=== PATIENT | male | born 1990 | race Caucasian/White ===

== ENCOUNTER 2021-07-25 15:06 | Emergency (ER) | payer OTHER ==
[2021-07-25] MEDS ORDERED: ONDANSETRON 4 MG/2 ML VIAL ONE (16:01)
[2021-07-25] MEDS ORDERED: KETAMINE HCL 500 MG/5 ML VIAL ONE (16:01)
--- NOTE | 2021-07-25 16:14 | RAD REPORT ---
EXAM DESCRIPTION: RAD - Knee Left 2 View - 07/25/2021 3:52 pm CLINICAL HISTORY: r/o fracture, knee pain COMPARISON: No comparisons FINDINGS: No fracture of the femur, tibia or fibula seen. Fracture of the patella is not identifiabl e. On this AP and cross-table lateral exam the patella appears to have been laterally dislocated. Cor relation is needed with exam findings. No joint effusion seen. No joint space narrowing. No air or foreign body in the soft tissues. IMPRESSION: Patella appears to be laterally dislocated but no fracture is identifiable.
--- NOTE | 2021-07-25 16:20 | ER ---
Nurse's Notes [facility] Name: Marion Mcguire Age: 31 yrs Sex: Male : 1990 Arrival Date: 07/25/2021 Time: 15:27 Bed 14 Private MD: Diagnosis: Lateral dislocation of left patella Presentation: 07/25 15:27 Chief complaint: Patient states: patient fell while climbing over a fence, injured left cb5 knee. Coronavirus screen: Client denies travel out of the [place] in the last 14 days. At this time, the client does not indicate any symptoms associated with coronavirus-19. Ebola Screen: Patient negative for fever greater than or equal to 101.5 degrees Fahrenheit, and additional compatible Ebola Virus Disease symptoms Patient denies exposure to infectious person. Patient denies travel to an Ebola-affected area in the 21 days before illness onset. Initial Sepsis Screen: Does the patient meet any 2 criteria? No. Patient's initial sepsis screen is negative. Does the patient have a suspected source of infection? No. Patient's initial sepsis screen is negative. Risk Assessment: Do you want to hurt yourself or someone else? Patient reports no desire to harm self or others. 15:27 Method Of Arrival: EMS: [facility] cb5 15:27 Acuity: LEXII 2 cb5 16:49 Onset of symptoms was July 25, 2021. ss Triage Assessment: 15:29 General: Appears uncomfortable, Behavior is calm, cooperative, appropriate for age, in cb5 police custody with metal restraints. Pain: Complains of pain in left leg, left knee. Historical: - Allergies: 16:49 PENICILLINS; ss - PMHx: 16:49 None; ss - PSHx: 16:49 Unable to Obtain; ss - Immunization history:: Adult Immunizations. - Social history:: Smoking status: unknown. Screenin:33 Abuse screen: Denies threats or abuse. Denies injuries from another. Nutritional cb5 screening: No deficits noted. Tuberculosis screening: No symptoms or risk factors identified. 15:34 Fall Risk cb5 Assessment: 15:30 General: Appears uncomfortable, Behavior is calm, cooperative, appropriate for age. cb5 Pain: Complains of pain in left knee, and leg Pain currently is 9 out of 10 on a pain scale. Neuro: No deficits noted. Level of Consciousness is awake, alert, obeys commands, Oriented to person, place, time, situation, Appropriate for age. Cardiovascular: No deficits noted. Respiratory: No deficits noted. GI: No deficits noted. : No deficits noted. EENT: No deficits noted. Derm:. Musculoskeletal: Capillary refill < 3 seconds, left patella. Injury Description: Deformity sustained to left patella. 16:30 Reassessment: No changes from previously documented assessment. Patient and/or family ss updated on plan of care and expected duration. Pain level reassessed. Patient is alert, oriented x 3, equal unlabored respirations, skin warm/dry/pink. Musculoskeletal: Circulation, motion, and sensation intact. Capillary refill < 3 seconds, Range of motion: intact in all extremities, Tenderness present in left knee. 17:13 Reassessment: No changes from previously documented assessment. Patient and/or family ll1 updated on plan of care and expected duration. Pain level reassessed. Patient is alert, oriented x 3, equal unlabored respirations, skin warm/dry/pink. Vital Signs: 15:27 BP 119 / 64; Pulse 63; Resp 16; Temp 98.6; Pulse Ox 99% ; Weight 83.91 kg; Height 5 ft. cb5 (152.40 cm); Pain 7/10; 16:48 BP 152 / 84; Pulse 74; Resp 12; Temp 98.6; Pulse Ox 100% on 3 lpm NC; Pain 4/10; ss 17:15 BP 141 / 81; Pulse 71; Resp 14; Pulse Ox 100% on R/A; Pain 3/10; ll1 15:27 Body Mass Index 36.13 (83.91 kg, 152.40 cm) cb5 ED Course: 15:27 Patient arrived in ED. cb5 15:27 Aniya Figueroa, RN is Primary Nurse. cb5 15:29 Triage completed. cb5 15:30 Nelson Pardo PA is PHCP. jr8 15:30 Arm band placed on. cb5 15:31 Hiram Grimes MD is Attending Physician. jr8 15:34 Bed in low position. Call light in reach. Side rails up X2. cb5 15:54 Knee Left 2 View In Process Unspecified. EDMS 16:00 Maintain EMS IV. Dressing intact. Good blood return noted. Site clean \T\ dry. Gauge \T\ ll 1 site: 20 G L AC. 16:49 No provider procedures requiring assistance completed. ss 17:09 Knee Left 2 View XRAY In Process Unspecified. EDMS 17:14 IV discontinued, intact, bleeding controlled, No redness/swelling at site. Pressure ll1 dressing applied. Administered Medications: 16:00 Drug: Zofran (Ondansetron) 4 mg Route: IVP; Site: right antecubital; ll1 16:50 Follow up: Response: No adverse reaction ss 16:10 Drug: Ketamine 80 mg Route: IVP; Site: right antecubital; ll1 16:50 Follow up: Response: No adverse reaction ss Outcome: 16:19 Discharge ordered by . barbra 17:14 Discharged to Law Enforcement ll1 17:14 Condition: stable 17:14 Discharge instructions given to patient, [employer] officer Instructed on discharge instructions, follow up and referral plans. medication usage, Demonstrated understanding of instructions, follow-up care, medications, crutch walking, Prescriptions given X 1. 17:15 Patient left the ED. ll1 Signatures: Dispatcher [employer] EDMS Charlotte Stock RN RN Nelson Pardo PA PA jr8 Cata Ca RN RN ll1 Aniya Figueroa, RN RN cb5
--- NOTE | 2021-07-25 16:20 | EDPHYS ---
Physician Documentation [facility] Name: Marion Mcguire Age: 31 yrs Sex: Male : 1990 Arrival Date: 07/25/2021 Time: 15:27 Bed 14 Private MD: ED Physician Hiram Grimes HPI: 07/25 16:06 This 31 yrs old Male presents to ER via EMS with complaints of Deformity knee. jr8 16:06 Onset: The symptoms/episode began/occurred acutely, today. Modifying factors: The jr8 symptoms are alleviated by remaining still, the symptoms are aggravated by movement. Associated signs and symptoms: The patient has no apparent associated signs or symptoms. Severity of symptoms: At their worst the symptoms were moderate, in the emergency department the symptoms are unchanged. The patient has not experienced similar symptoms in the past. The patient has not recently seen a physician. 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 Patient stated that he stepped into a hole causing a twisting motion onto his left knee. Golva a few pops and then noticed immediate deformity. Got to a safe area and then notified his officer on duty which called EMS. Denies any other injury at this time.. Historical: - Allergies: 16:49 PENICILLINS; ss - PMHx: 16:49 None; ss - PSHx: 16:49 Unable to Obtain; ss - Immunization history:: Adult Immunizations. - Social history:: Smoking status: unknown. ROS: 16:06 Eyes: Negative for injury, pain, redness, and discharge, ENT: Negative for injury, jr8 pain, and discharge, Neck: Negative for injury, pain, and swelling, Cardiovascular: Negative for chest pain, palpitations, and edema, Respiratory: Negative for shortness of breath, cough, wheezing, and pleuritic chest pain, Abdomen/GI: Negative for abdominal pain, nausea, vomiting, diarrhea, and constipation, Back: Negative for injury and pain, Skin: Negative for injury, rash, and discoloration, Neuro: Negative for headache, weakness, numbness, tingling, and seizure. 16:06 MS/extremity: Positive for injury or acute deformity, decreased range of motion, pain, swelling, tenderness, of the left leg. Exam: 16:06 Constitutional: This is a well developed, well nourished patient who is awake, alert, jr8 and in no acute distress. Cardiovascular: Regular rate and rhythm with a normal S1 and S2. No gallops, murmurs, or rubs. Normal PMI, no JVD. No pulse deficits. Respiratory: Lungs have equal breath sounds bilaterally, clear to auscultation and percussion. No rales, rhonchi or wheezes noted. No increased work of breathing, no retractions or nasal flaring. Skin: Warm, dry with normal turgor. Normal color with no rashes, no lesions, and no evidence of cellulitis. Neuro: Awake and alert, GCS 15, oriented to person, place, time, and situation. Cranial nerves II-XII grossly intact. Motor strength 5/5 in all extremities. Sensory grossly intact. 16:06 Head/Face: Normocephalic, atraumatic. Neck: Trachea midline, no thyromegaly or masses palpated, and no cervical lymphadenopathy. Supple, full range of motion without nuchal rigidity, or vertebral point tenderness. No Meningismus. Chest/axilla: Normal chest wall appearance and motion. Nontender with no deformity. No lesions are appreciated. Abdomen/GI: Soft, non-tender, with normal bowel sounds. No distension or tympany. No guarding or rebound. No evidence of tenderness throughout. Back: No spinal tenderness. No costovertebral tenderness. Full range of motion. 16:06 Musculoskeletal/extremity: Extremities: grossly normal except: noted in the left leg: Patient has deformity to the anterior left knee. It appears that patella is laterally displaced with moderate tenderness. No extensive amount of swelling or bruising noted. No other obvious deformity noted. Patient has normal sensation to the lower extremity distal to the injury site. Pulses 2+ dorsal pedal and posterior tibial to affected extremity. All other extremities unremarkable.. Vital Signs: 15:27 BP 119 / 64; Pulse 63; Resp 16; Temp 98.6; Pulse Ox 99% ; Weight 83.91 kg; Height 5 ft. cb5 (152.40 cm); Pain 7/10; 16:48 BP 152 / 84; Pulse 74; Resp 12; Temp 98.6; Pulse Ox 100% on 3 lpm NC; Pain 4/10; ss 17:15 BP 141 / 81; Pulse 71; Resp 14; Pulse Ox 100% on R/A; Pain 3/10; ll1 15:27 Body Mass Index 36.13 (83.91 kg, 152.40 cm) cb5 Procedures: 16:16 Reduction: of the left knee, using manipulation, Immobilized with knee immobilizer . jr8 Patient tolerated well. Post reduction film - reveals normal alignment. Moderate sedation: Pre-procedure assessment: the patient has been NPO 4 hour(s) prior to arrival, ASA physical classification: I - healthy, no underlying organic disease, Airway assessment: able to hyperextend neck, able to maintain airway, can open mouth without difficulty, Mallampati classification of tongue size: II - faucial pillars and soft palate can be visualized, but uvula is masked by the base of the tongue, Monitoring during procedure: hand tapper, continuous pulse oximetry, nurse at bedside at all times, Medications employed: Ketamine, 80 mg(s), Post-procedure assessment: the patient is deeply sedated, Blake sedation score: 6 - no response, Respiratory status: requires supplemental oxygen to maintain acceptable oxygen saturation, a reversal agent was not used. MDM: 15:31 Patient medically screened. jr8 16:16 Data reviewed: vital signs, nurses notes, radiologic studies, plain films. Data jr8 interpreted: Pulse oximetry: on room air is 99 %. Interpretation: normal. Counseling: I had a detailed discussion with the patient and/or guardian regarding: the historical points, exam findings, and any diagnostic results supporting the discharge/admit diagnosis, radiology results, the need for outpatient follow up, a orthopedic surgeon, to return to the emergency department if symptoms worsen or persist or if there are any questions or concerns that arise at home. 07/25 15:53 Order name: Knee Left 2 View; Complete Time: 16:19 EDGA 07/25 15:43 Order name: Conscious Sedation; Complete Time: 16:26 jr 07/25 16:16 Order name: Knee Left 2 View XRAY bd Administered Medications: 16:00 Drug: Zofran (Ondansetron) 4 mg Route: IVP; Site: right antecubital; ll1 16:50 Follow up: Response: No adverse reaction ss 16:10 Drug: Ketamine 80 mg Route: IVP; Site: right antecubital; ll1 16:50 Follow up: Response: No adverse reaction ss Disposition: 18:46 Co-signature as Attending Physician, Hiram Grimes MD. rn Disposition Summary: 07/25/21 16:19 Discharge Ordered Location: Law Enforcement [facility] Problem: new jr8 Symptoms: are resolved jr8 Condition: Stable jr8 Diagnosis - Lateral dislocation of left patella jr8 Followup: jr8 - With: Private Physician - When: 2 - 3 days - Reason: Recheck today's complaints, Continuance of care, Re-evaluation by your physician Discharge Instructions: - Discharge Summary Sheet jr8 - Patellar Dislocation jr8 Forms: - Medication Reconciliation Form jr8 - Thank You Letter jr8 - Antibiotic Education jr8 - Prescription Opioid Use jr8 Prescriptions: - Ibuprofen 800 mg Oral Tablet - take 1 tablet by ORAL route every 12 hours As needed take with food; 20 tablet; jr8 Refills: 0, Product Selection Permitted Signatures: Dispatcher [employer] EDMS Hiram Grimes MD MD rn Smirch, Shelby, RN RN ss Nelson Pardo PA PA jr8 Cata Ca RN RN ll1 Aniya Figueroa RN RN cb5 Corrections: (The following items were deleted from the chart) 15:53 15:53 Knee Left 2 View+RAD.RAD.BRZ ordered. EDMS EDMS
--- NOTE | 2021-07-25 17:16 | RAD REPORT ---
EXAM DESCRIPTION: RAD - Knee Left 2 View - 07/25/2021 5:07 pm CLINICAL HISTORY: post reduction COMPARISON: Knee Left 2 View dated 07/25/2021 FINDINGS: AP and cross-table lateral views show successful reduction of the laterally dislocated pat janneth seen on the earlier examination. Patella is now in anatomic position. Small joint effusion is pr esent. No fracture or acute bone findings seen. IMPRESSION: Successful reduction of the lateral patella dislocation detailed earlier. Small joint effusion is seen with no fracture identified.
[2021-07-25 17:40] VITALS: TEMP 98.6
[2021-07-25 17:42] VITALS: O2SAT 100
[2021-07-25 17:43] VITALS: BP 141/81
== END 2021-07-25 17:15 ==
LOC: ER 15:06
PROC: 0QSFXZZ Reposition Left Patella, External Approach (ICD-10-PCS; principal; 2021-07-25)
DX: S83.015A Lateral dislocation of left patella, initial encounter (principal); X50.1XXA Overexertion from prolonged static or awkward postures, initial encounter; Y93.89 Activity, other specified; Y92.149 Unspecified place in prison as the place of occurrence of the external cause; Z88.0 Allergy status to penicillin
CPT/HCPCS: 73560 ×2; 96375; 96374; 99284; 27562; J2405

== ENCOUNTER 2021-09-06 11:34 | Emergency (ER) | payer OTHER ==
[2021-09-06] MEDS ORDERED: HYDROMORPHONE HCL 1 MG/ML INJ ONE ×2 (11:49→13:34)
[2021-09-06] MEDS ORDERED: ONDANSETRON 4 MG/2 ML VIAL ONE (11:50)
[2021-09-06] MEDS ORDERED: KETOROLAC 30 MG/ML INJ ONE (11:50)
[2021-09-06 11:57] LABS: Hematocrit 38.2 % (39.6-49.0); Lymphocytes % 10.7 % (15.3-44.8); MPV 8.7 fL (7.6-11.3); RBC Red Blood Cell Count 4.14 M/uL (4.33-5.43)
[2021-09-06 12:16] LABS: ALT/SGPT 25 U/L (12-78); AST/SGOT 20 U/L (15-37); Albumin 4.1 g/dL (3.4-5.0); Alkaline Phosphatase 88 U/L (45-117); BUN Blood Urea Nitrogen 16 mg/dL (7-18); Bicarbonate 27 mmol/L (21-32); Bilirubin Total 0.7 mg/dL (0.2-1.0); Glucose Level 101 mg/dL (74-106); Potassium 3.6 mmol/L (3.5-5.1); Protein, Total 7.4 g/dL (6.4-8.2); Sodium Level 139 mmol/L (136-145)
[2021-09-06 12:33] LABS: Platelet Estimate ADEQ; White Blood Cell Scan OK (OK)
[2021-09-06 12:34] LABS: Blood Morphology Comment NOT SEEN (NOT SEEN)
--- NOTE | 2021-09-06 12:56 | RAD REPORT ---
EXAM DESCRIPTION: RAD - Knee Left 3 View - 09/06/2021 12:49 pm CLINICAL HISTORY: PAIN COMPARISON: Knee Left 2 View dated 07/25/2021; Knee Left 2 View dated 07/25/2021 FINDINGS: No acute fracture. No malalignment. No significant focal degenerative changes. Moderate kn ee effusion. IMPRESSION: No left knee fractures identified. Large knee effusion. Radiographically occult injury s uch as internal derangement or contusion could explain the knee effusion.
[2021-09-06] MEDS ORDERED: MIDAZOLAM HCL 2 MG/2 ML INJ ONE (13:33)
[2021-09-06] MEDS ORDERED: ETOMIDATE 20 MG/10 ML VIAL IV ONE (13:34)
--- NOTE | 2021-09-06 14:57 | ER ---
Nurse's Notes [facility] Name: Marion Mcguire Age: 31 yrs Sex: Male : 1990 Arrival Date: 09/06/2021 Time: 11:35 Bed 20 Private MD: Diagnosis: Lateral dislocation of left patella-reduced;Effusion, left knee Presentation: 09/06 11:35 Chief complaint: EMS states: [facility] INMATE FROM [facility], TWISTED LEFT KNEE AT 0900. bp Coronavirus screen: At this time, the client does not indicate any symptoms associated with coronavirus-19. Ebola Screen: No symptoms or risks identified at this time. Initial Sepsis Screen: Does the patient meet any 2 criteria? No. Patient's initial sepsis screen is negative. Does the patient have a suspected source of infection? No. Patient's initial sepsis screen is negative. Risk Assessment: Do you want to hurt yourself or someone else? Patient reports no desire to harm self or others. Onset of symptoms was September 06, 2021 at 09:00. Care prior to arrival: IV initiated. 18 GA, in the left antecubital area. 11:35 Method Of Arrival: EMS: [facility] bp 11:35 Acuity: LEXII 3 bp Triage Assessment: 11:37 General: Appears distressed, uncomfortable, Behavior is cooperative, appropriate for bp age, anxious. Pain: Complains of pain in left knee. EENT: No deficits noted. Neuro: No deficits noted. Cardiovascular: No deficits noted. Respiratory: No deficits noted. GI: No signs and/or symptoms were reported involving the gastrointestinal system. : No signs and/or symptoms were reported regarding the genitourinary system. Derm: No deficits noted. Musculoskeletal: Circulation, motion, and sensation intact. Swelling present in left knee. Injury Description: Deformity sustained to left knee. Historical: - Allergies: 11:37 PENICILLINS; bp - Immunization history:: Adult Immunizations up to date. - Social history:: Smoking status: Patient denies any tobacco usage or history of. - Family history:: not pertinent. Screenin:39 Abuse screen: Denies threats or abuse. Denies injuries from another. Nutritional bp screening: No deficits noted. Tuberculosis screening: No symptoms or risk factors identified. Fall Risk None identified. Assessment: 11:39 General: SEE TRIAGE NOTE. bp 12:48 Reassessment: No changes from previously documented assessment. Patient and/or family bp updated on plan of care and expected duration. Pain level reassessed. XRAY COMPLETE. 13:30 Reassessment: No changes from previously documented assessment. Patient and/or family bp updated on plan of care and expected duration. Pain level reassessed. 14:45 Reassessment: LEFT KNEE REDUCED AND IMMOBILIZER PLACED. bp 16:40 Reassessment: PT D/C WITH [facility] TRANSPORT. bp Vital Signs: 11:35 BP 126 / 72; Pulse 76; Resp 16; Temp 97.5; Pulse Ox 98% ; bp 12:48 BP 121 / 59; Pulse 62; Resp 16; Pulse Ox 100% ; bp 13:30 BP 115 / 59; Pulse 59; Resp 16; Pulse Ox 98% ; bp 14:45 BP 107 / 70; Pulse 74; Resp 15; Pulse Ox 100% ; bp 16:40 BP 113 / 67; Pulse 74; Resp 16; Pulse Ox 100% ; bp ED Course: 11:35 Patient arrived in ED. bp 11:36 Paxton Armenta MD is Attending Physician. kajal 11:36 Elvira Hull FNP [facility] 11:37 Triage completed. bp 11:37 Arm band placed on. bp 11:39 Patient has correct armband on for positive identification. Bed in low position. Call bp light in reach. Side rails up X2. Adult w/ patient. Security at bedside. 11:39 Maintain EMS IV. Dressing intact. Good blood return noted. Site clean \T\ dry. Gauge \T\ bp site: 18 G LEFT AC. 11:41 Sen Culp, BURKE is Primary Nurse. bp 12:50 Knee Left 3 View XRAY In Process Unspecified. EDMS 14:56 Mc Walters MD is Referral Physician. kajal 16:40 No provider procedures requiring assistance completed. IV discontinued, intact, bp bleeding controlled, No redness/swelling at site. Pressure dressing applied. Administered Medications: 11:43 CANCELLED (Duplicate Order): Motrin (ibuprofen) 600 mg PO once kajal 11:50 Drug: NS 0.9% 1000 ml Route: IV; Rate: 1 bolus; Site: left antecubital; bp 16:41 Follow up: IV Status: Completed infusion; IV Intake: 1000ml bp 11:50 Drug: Ketorolac 30 mg Route: IVP; Site: left antecubital; bp 11:50 Drug: Dilaudid (HYDROmorphone) 1 mg Route: IVP; Site: left antecubital; bp 15:05 Follow up: Response: Pain is decreased bp 11:50 Drug: Zofran (Ondansetron) 4 mg Route: IVP; Site: left antecubital; bp 15:05 Follow up: Response: No adverse reaction bp 13:50 Drug: Dilaudid (HYDROmorphone) 1 mg Route: IVP; Site: left antecubital; bp 15:05 Follow up: Response: Pain is decreased bp 14:45 Drug: Versed (midazolam) 2 mg Route: IVP; Site: left antecubital; bp 15:05 Follow up: Response: No adverse reaction bp 14:45 Drug: Versed (midazolam) 2 mg Route: IVP; Site: left antecubital; bp 15:05 Follow up: Response: No adverse reaction bp 14:45 Drug: Etomidate 10 mg Route: IVP; Site: left antecubital; bp 15:05 Follow up: Response: No adverse reaction bp 15:04 Not Given (Physician Discretion): Etomidate 10 mg IVP once bp Intake: 16:41 IV: 1000ml; Total: 1000ml. bp Outcome: 14:57 Discharge ordered by . kajal 16:40 Discharged to Law Enforcement bp 16:40 Condition: stable 16:40 Discharge instructions given to patient, police, Instructed on discharge instructions, follow up and referral plans. medication usage, crutch walking, Demonstrated understanding of instructions, follow-up care, medications, crutch walking, splint care, Prescriptions given X 2. 16:42 Patient left the ED. bp Signatures: Dispatcher [employer] EDPaxton Singh MD MD cha Peltier, Brian, BURKE RN bp Elvira Hull, MEDICARE SPECIALIST MEDICARE SPECIALIST [email or web address]
--- NOTE | 2021-09-06 14:58 | EDPHYS ---
Physician Documentation [facility] Name: Marion Mcguire Age: 31 yrs Sex: Male : 1990 Arrival Date: 09/06/2021 Time: 11:35 Bed 20 Private MD: ED Physician Paxton Armenta HPI: 09/06 13:29 This 31 yrs old Male presents to ER via EMS with complaints of Knee Injury. kajal 13:29 The patient presents with decreased range of motion, a deformity. The complaints affect kajal the left knee. Context: The problem was sustained outdoors, resulted from twisting of the extremity. Onset: The symptoms/episode began/occurred just prior to arrival. Modifying factors: The symptoms are alleviated by nothing. elevating leg, remaining still, the symptoms are aggravated by movement. Associated signs and symptoms: The patient has no apparent associated signs or symptoms. Treatment prior to arrival includes: no previous treatment. Severity of symptoms: At their worst the symptoms were mild, in the emergency department the symptoms are unchanged. The patient has not experienced similar symptoms in the past. Historical: - Allergies: 11:37 PENICILLINS; bp - Immunization history:: Adult Immunizations up to date. - Social history:: Smoking status: Patient denies any tobacco usage or history of. - Family history:: not pertinent. ROS: 13:29 Constitutional: Negative for fever, chills, and weight loss, Eyes: Negative for injury, kajal pain, redness, and discharge, ENT: Negative for injury, pain, and discharge, Neck: Negative for injury, pain, and swelling, Cardiovascular: Negative for chest pain, palpitations, and edema, Respiratory: Negative for shortness of breath, cough, wheezing, and pleuritic chest pain, Abdomen/GI: Negative for abdominal pain, nausea, vomiting, diarrhea, and constipation, Back: Negative for injury and pain, : Negative for injury, bleeding, discharge, and swelling, Skin: Negative for injury, rash, and discoloration, Neuro: Negative for headache, weakness, numbness, tingling, and seizure, Psych: Negative for depression, anxiety, suicide ideation, homicidal ideation, and hallucinations, Allergy/Immunology: Negative for hives, rash, and allergies, Endocrine: Negative for neck swelling, polydipsia, polyuria, polyphagia, and marked weight changes, Hematologic/Lymphatic: Negative for swollen nodes, abnormal bleeding, and unusual bruising. 13:29 MS/extremity: Positive for decreased range of motion, pain, swelling, tenderness, of the left knee. Exam: 13:29 Constitutional: This is a well developed, well nourished patient who is awake, alert, kajal and in no acute distress. Head/Face: Normocephalic, atraumatic. Eyes: Pupils equal round and reactive to light, extra-ocular motions intact. Lids and lashes normal. Conjunctiva and sclera are non-icteric and not injected. Cornea within normal limits. Periorbital areas with no swelling, redness, or edema. ENT: Nares patent. No nasal discharge, no septal abnormalities noted. Tympanic membranes are normal and external auditory canals are clear. Oropharynx with no redness, swelling, or masses, exudates, or evidence of obstruction, uvula midline. Mucous membranes moist. Neck: Trachea midline, no thyromegaly or masses palpated, and no cervical lymphadenopathy. Supple, full range of motion without nuchal rigidity, or vertebral point tenderness. No Meningismus. Chest/axilla: Normal chest wall appearance and motion. Nontender with no deformity. No lesions are appreciated. Cardiovascular: Regular rate and rhythm with a normal S1 and S2. No gallops, murmurs, or rubs. Normal PMI, no JVD. No pulse deficits. Respiratory: Lungs have equal breath sounds bilaterally, clear to auscultation and percussion. No rales, rhonchi or wheezes noted. No increased work of breathing, no retractions or nasal flaring. Abdomen/GI: Soft, non-tender, with normal bowel sounds. No distension or tympany. No guarding or rebound. No evidence of tenderness throughout. Back: No spinal tenderness. No costovertebral tenderness. Full range of motion. Male : Normal genitalia with no discharge or lesions. Skin: Warm, dry with normal turgor. Normal color with no rashes, no lesions, and no evidence of cellulitis. Neuro: Awake and alert, GCS 15, oriented to person, place, time, and situation. Cranial nerves II-XII grossly intact. Motor strength 5/5 in all extremities. Sensory grossly intact. Cerebellar exam normal. Normal gait. Psych: Awake, alert, with orientation to person, place and time. Behavior, mood, and affect are within normal limits. 13:29 Musculoskeletal/extremity: Extremities: grossly normal except: decreased ROM, pain, swelling, tenderness, ROM: limited active range of motion due to pain, limited passive range of motion due to pain, Circulation is intact in all extremities. Severe pain noted. Compartment Syndrome exam of affected extremity: is normal. DVT Exam: No signs of deep vein thrombosis. negative Homans' sign noted on exam, no appreciated bluish discoloration, no erythema, no increased warmth, pain, swelling, tenderness. Vital Signs: 11:35 BP 126 / 72; Pulse 76; Resp 16; Temp 97.5; Pulse Ox 98% ; bp 12:48 BP 121 / 59; Pulse 62; Resp 16; Pulse Ox 100% ; bp 13:30 BP 115 / 59; Pulse 59; Resp 16; Pulse Ox 98% ; bp 14:45 BP 107 / 70; Pulse 74; Resp 15; Pulse Ox 100% ; bp 16:40 BP 113 / 67; Pulse 74; Resp 16; Pulse Ox 100% ; bp Procedures: 14:54 Reduction: of the left knee, using manipulation, pressure, lateral, Immobilized with [facility] immobolizer. Patient tolerated well. Post reduction film - reveals improved alignment. MDM: 11:36 Patient medically screened. kajal 13:34 Differential diagnosis: dislocation, closed fracture, contusion, tendonitis. Data [facility] reviewed: vital signs, nurses notes, lab test result(s), radiologic studies, plain films. Data interpreted: campus monitor: rate is 62 beats/min, rhythm is regular, Pulse oximetry: on room air is 62 %. Test interpretation: by ED physician or midlevel provider: plain radiologic studies. Counseling: I had a detailed discussion with the patient and/or guardian regarding: the historical points, exam findings, and any diagnostic results supporting the discharge/admit diagnosis, lab results, radiology results. 09/06 11:44 Order name: CBC with Diff; Complete Time: 13:26 [facility] 09/06 11:44 Order name: Comprehensive Metabolic Panel; Complete Time: 13:26 [facility] 09/06 11:41 Order name: Knee Left 3 View XRAY; Complete Time: 13:26 kajal 09/06 12:34 Order name: CBC Smear Scan; Complete Time: 13:26 [facility] 09/06 11:41 Order name: Ice pack; Complete Time: 11:53 kajal 09/06 14:39 Order name: Ervin wrap-joint; Complete Time: 15:04 kajal 09/06 14:39 Order name: Knee Immobilizer; Complete Time: 15:04 kajal Administered Medications: 11:43 CANCELLED (Duplicate Order): Motrin (ibuprofen) 600 mg PO once kajal 11:50 Drug: NS 0.9% 1000 ml Route: IV; Rate: 1 bolus; Site: left antecubital; bp 16:41 Follow up: IV Status: Completed infusion; IV Intake: 1000ml bp 11:50 Drug: Ketorolac 30 mg Route: IVP; Site: left antecubital; bp 11:50 Drug: Dilaudid (HYDROmorphone) 1 mg Route: IVP; Site: left antecubital; bp 15:05 Follow up: Response: Pain is decreased bp 11:50 Drug: Zofran (Ondansetron) 4 mg Route: IVP; Site: left antecubital; bp 15:05 Follow up: Response: No adverse reaction bp 13:50 Drug: Dilaudid (HYDROmorphone) 1 mg Route: IVP; Site: left antecubital; bp 15:05 Follow up: Response: Pain is decreased bp 14:45 Drug: Versed (midazolam) 2 mg Route: IVP; Site: left antecubital; bp 15:05 Follow up: Response: No adverse reaction bp 14:45 Drug: Versed (midazolam) 2 mg Route: IVP; Site: left antecubital; bp 15:05 Follow up: Response: No adverse reaction bp 14:45 Drug: Etomidate 10 mg Route: IVP; Site: left antecubital; bp 15:05 Follow up: Response: No adverse reaction bp 15:04 Not Given (Physician Discretion): Etomidate 10 mg IVP once bp Disposition Summary: 09/06/21 14:57 Discharge Ordered Location: Home kajal Problem: new kajal Symptoms: have improved kajal Condition: Stable kajal Diagnosis - Lateral dislocation of left patella - reduced kajal - Effusion, left knee kajal Followup: kajal - With: Private Physician - When: 2 - 3 days - Reason: Recheck today's complaints, Continuance of care, Re-evaluation by your physician Followup: kajal - With: Mc Walters MD - When: 2 - 3 days - Reason: Recheck today's complaints, Continuance of care, Re-evaluation by your physician Discharge Instructions: - Discharge Summary Sheet kajal - Knee Dislocation kajal - Knee Effusion kajal - Knee Effusion, [id number] kajal - Knee Dislocation, [id number] kajal Forms: - Medication Reconciliation Form kajal - Thank You Letter kajal - Antibiotic Education kajal - Prescription Opioid Use kajal Prescriptions: - Ibuprofen 600 mg Oral Tablet - take 1 tablet by ORAL route every 6 hours As needed take with food; 20 tablet; kajal Refills: 0, Product Selection Permitted - Tylenol-Codeine #3 300 mg-30 mg Oral - take 2 tablet by ORAL route every 6 hours; 20 tablet; Refills: 0, Product kajal Selection Permitted Signatures: Dispatcher [employer] EDPaxton Singh MD MD cha Peltier, Brian RN RN bp Corrections: (The following items were deleted from the chart) 11:43 11:41 Motrin (ibuprofen) 600 mg PO once ordered. kajal rdz
[2021-09-06 17:45] VITALS: O2SAT 100
[2021-09-06 17:46] VITALS: BP 113/67
[2021-09-06 17:52] VITALS: TEMP 97.5
== END 2021-09-06 16:42 | disposition home or self-care (01) ==
LOC: ER 11:34
PROC: 0QSFXZZ Reposition Left Patella, External Approach (ICD-10-PCS; principal; 2021-09-06)
DX: S83.015A Lateral dislocation of left patella, initial encounter (principal); M25.462 Effusion, left knee; X50.1XXA Overexertion from prolonged static or awkward postures, initial encounter; Y92.89 Other specified places as the place of occurrence of the external cause; Z88.0 Allergy status to penicillin
CPT/HCPCS: 96361; 85025; 36415; 80053; 73562; 96375; 96374; 99284; 27560; J2250; J2405; J1170